=== PATIENT | male | born 1945 | race African-American/Black ===

== ENCOUNTER 2016-07-27 07:12 | Day surgery (SDC) | payer OTHER ==
[2016-07-27] VITALS (13 sets, daily range): BP systolic 124–176; BP diastolic 51–92; PULSE 59–66; TEMP 97.8
[~2016-07-27] VITALS: Ht 170.2 cm; Wt 132.0 kg
[~2016-07-27 07:12] MED LIST: ALDACTONE 25MG25 M1; AMARYL1 MG; AMBIEN 5MG TABLE5 MG; ARMOUR THYROID15 MG; JANUVIA25 MG; LANTUS100 U/ML SC; LASIX 80MG TABL80 MG PO; MEVACOR10 MG; NEURONTIN100 MG/CAP; NORCO 325 MG-51 TAB PO; PRILOSEC10 MG; PRINIVIL2.5 MG; TENORMIN100 MG PO; ZYLOPRIM 300MG300 MG PO
[2016-07-27] MEDS ORDERED: JANUVIA 100MG100 MG PO (08:00)
[2016-07-27] MEDS ORDERED: NEURONTIN400 MG/CAP PO (08:01)
[2016-07-27] MEDS ORDERED: MEVACOR 20M20 MG/TAB PO (08:02)
[2016-07-27] MEDS ORDERED: PRILOSEC 20MG20 MG PO (08:02)
[2016-07-27 08:03] LABS: INR 1.2 (0.8-3.0); PROTHROMBIN TIME 12.9 SECONDS (9.7-12.8)
[2016-07-27 08:04] LABS: HEMATOCRIT 37.3 % (42.0-52.0); MEAN CELL VOLUME 82 fl (80.0-100.0); MEAN CORPUSCULAR HEMOGLOBIN 26 pg (27.0-31.0); MEAN CORPUSCULAR HGB CONC 32 g/dl (33.0-37.0); MEAN PLATELET VOLUME 12.9 fl (7.4-10.4); PLATELET COUNT 180 K/mm3 (130-400); RED BLOOD COUNT 4.54 M/mm3 (4.20-5.60); REDCELL DISTRIBUTION WIDTH-CV 16.4 % (11.5-14.5); WHITE BLOOD COUNT 9.2 K/mm3 (4.8-10.8)
[2016-07-27] MEDS ORDERED: SYNTHROID0.1 MG/TAB PO (08:04)
[2016-07-27] MEDS ORDERED: COZAAR 25MG25 MG/TAB PO (08:05)
[2016-07-27] MEDS ORDERED: ALDACTONE 25MG25 M1 PO (08:05)
[2016-07-27] MEDS ORDERED: ULTRAM 50MG TAB50 MG PO (08:14)
[2016-07-27 08:18] LABS: HEMOGLOBIN 11.9 g/dl (13.5-18.0)
[2016-07-27 08:19] LABS: CALCIUM 9.3 mg/dL (8.4-10.2); CREATININE, serum 1.77 mg/dL (0.66-1.25)
[2016-07-27] MEDS ORDERED: CARDIZEM CD 18180 MG PO (13:17)
[2016-07-27] MEDS ORDERED: CEPHALEXIN500 M1 PO (16:43)
== END 2016-07-27 17:07 | disposition home or self-care (01) ==
LOC: COL.CAR 07:12
PROVIDERS: Internal Medicine Cardiovascular Disease
DX: I25.10 Atherosclerotic heart disease of native coronary artery without angina pectoris (principal); R94.39 Abnormal result of other cardiovascular function study; I42.2 Other hypertrophic cardiomyopathy; R06.02 Shortness of breath; G47.33 Obstructive sleep apnea (adult) (pediatric); E07.9 Disorder of thyroid, unspecified; I12.9 Hypertensive chronic kidney disease with stage 1 through stage 4 chronic kidney disease, or unspecified chronic kidney disease; E11.22 Type 2 diabetes mellitus with diabetic chronic kidney disease; N18.9 Chronic kidney disease, unspecified; K21.9 Gastro-esophageal reflux disease without esophagitis; E11.40 Type 2 diabetes mellitus with diabetic neuropathy, unspecified; M19.90 Unspecified osteoarthritis, unspecified site; Z79.899 Other long term (current) drug therapy; F17.220 Nicotine dependence, chewing tobacco, uncomplicated; E78.2 Mixed hyperlipidemia
CPT/HCPCS: C1760; C1764; C1769; J2250; J2704; J3010; Q9967